=== PATIENT | female | born 1985 | race Caucasian/White ===

== ENCOUNTER 2016-11-13 09:38 | Inpatient (IN) | payer MEDICAID ==
[~2016-11-13] VITALS: Ht 162.6 cm; Wt 101.2 kg
[~2016-11-13 09:38] MED LIST: Carboprost 250 mCg/mL Inj IM PRN; Docusate Sodium PO; FERR-74 PO; HYDR-656 PO; Hemorrhage Kit, Post Partum XX ONE; Ibuprofen PO; Lactated Ringer's 1,000 ML IV SCH; Methylergonovine 0.2 mg/mL Inj IM PRN; OMEP10CA2 PO; OXYC-284 PO; Oxytocin 10 Unit/mL Inj IM PRN; PREN1TAB25 PO; Sodium Citrate-Citric Acid 15 mL Solution PO SCH; URSO300C2 PO
[2016-11-13] MEDS ORDERED: Oxytocin 10 Unit/mL Inj ONE (09:39)
[2016-11-13] MEDS ORDERED: Bupiv-Spinal 0.75%/Dex 8.25% 2 mL Inj ONE (09:39)
[2016-11-13] MEDS ORDERED: Ondansetron 2 mg/mL 2 mL Inj ONE (09:39)
[2016-11-13] MEDS ORDERED: fentaNYL-PF 50 mCg/mL 2 mL Inj ONE (09:39)
[2016-11-13] MEDS ORDERED: Morphine PF 1 mg/mL 10 mL Inj ONE (09:39)
[2016-11-13 10:39] LABS: Mean Corpuscular Hemoglobin 25.6 pg (27.0-35.0); Mean Corpuscular Volume 79.2 fL (81-100)
[2016-11-13] MEDS ORDERED: CeFAZolin Inj 2 GM in Dextrose 5% 50 ML IV SCH (10:48)
[2016-11-13] MEDS ORDERED: RANI150T11 PO (11:33)
[2016-11-13 13:51] LABS: INR 0.95 ratio
--- NOTE | 2016-11-13 14:12 | PCM.HPANE ---
Patient Data Surgeon Admitting Provider:Roland Bhatt MD Attending Provider:Roland Bhatt MD Primary Care Physician:Gildardo Gil MD Other Provider:Sharri Faustin Anesthesia Reason for Visit Repeat REPEAT Ht/WT & BMI Body Mass Index Allergies Coded Allergies: No Known Allergies (Unverified Allergy, Unknown, 11/13/16) latex (Unverified Allergy, Unknown, 11/13/16) Diabetes History Hx Diabetes?: No Medications Reported Medications Ranitidine (Zantac)150 Mg [id number] Mg PO DAILY 11/13/16 Ursodiol 300 Mg [id number] Mg PO TID 07/08/14 Vit#96/Ferrous Fum/FA ( Tablet)1 Each Tablet1 Each PO DAILY 07/08/14 Discontinued Reported Medications hydrOXYzine Hcl (HydrOXYzine Hcl)25 Mg Ymyfqj14 Mg PO HS PRN For Itching 07/08/14 Omeprazole (Prilosec)10 Mg Capsule.dr PO DAILY 30 Days Ref 0 07/08/14 Discontinued Scripts Oxycodone HCl/Acetaminophen 5-325 (Percocet 5-325)1 Each Tablet1-2 Each PO Q4 PRN For Pain #30 TABLET Ref 0 Prov:Roland Bhatt MD 07/10/14 [Ibuprofen] (Motrin)800 MG TABLET No Conflict [id number] Mg PO Q6H PRN For Pain # 30 TABLET Ref 1 Prov:Roland Bhatt MD 07/10/14 Ferrous Sulfate (Feosol)325 Mg [id number] Mg PO DAILY #30 TABLET Ref 2 Prov:Roland Bhatt MD 07/10/14 [Docusate Sodium] (Colace)100 MG CAPSULE No Conflict Cnzyc620 Mg PO BID #60 CAPSULE Ref 2 Prov:Roland Bhatt MD 07/10/14 History History of ENT Problems?: No Hx of Heart Problems?: No Hx of Respiratory Problem?: No Hx Neurologic Problems?: No Hx of GI Problems?: Yes Gastrointestinal History: Positive for:: Heartburn Hx of Problems?: No HX of Peritoneal Dialysis: No Female Hx: Positive for:: Currently Hx Musculoskeletal Problems?: No Hx of Psycho/Social Problems?: No Hx Surgeries?: Yes Hx Any Other Health Problems?: No Hx Diabetes: No Hx Alcohol Use: NoHx Substance Use: No Smoking Status: Never Smoker Have You Smoked inLast 12 mo: No Stop/Bang Risk Assessment Category Category 1A: Patient has history of documented sleep apnea, and HAS NOT received any narcotic, sedative or anesthesia administration during this stay. Category 1B: Patient has history of documented sleep apnea, and HAS received any narcotic , sedative or anesthesia administration during this stay Category 2: Patient has SUSPECTED Obstructive Sleep Apnea, and HAS received any narcotic , sedative or anesthesia administration during this stay. Category 3: Patient has SUSPECTED Obstructive Sleep Apnea and HAS NOT received narcotic, sedative or anesthesia administration during this stay. Category 4: Outpatient in Procedural Areas with known sleep apnea or who screen positive for High Risk via the STOP/BANG questionnaire. Exam Exam General Appearance: Alert, Oriented X3, Cooperative, No Acute Distress HEENT/AIRWAY: MP 2 Lungs: Clear to Auscultation Heart: Exam Unremarkable Meds/Labs/Diagnostics Admission Meds Current Medications Lactated Ringer's (Lr) 1,000 ml @ 125 mls/hr Q8H IV Last administered on t 11:21; Start 11/13/16 at 08:59; Stop 11/13/16 at 16:58 Labs Test 11/13/16 10:10 11/13/16 13:13 White Blood Count 9.5th/mm3 (3.8-10.1) Red Blood Count 4.03mil/mm3 (3.90-5.20) Hemoglobin 10.3g/dL (12.0-15.6) Hematocrit 31.9% (35.0-46.0) Mean Corpuscular Volume 79.2fL (81-100) Mean Corpuscular Hemoglobin 25.6pg (27.0-35.0) Mean Corpuscular Hemoglobin Concent 32.3% (32.0-37.0) Red Cell Distribution Width 13.4% (12.3-15.4) Platelet Count 248bil/L (150-400) Creatinine 0.51mg/dL (0.57-1.00) Aspartate Amino Transf (AST/SGOT) 16U/L (0-50) Alanine Aminotransferase (ALT/SGPT) 8U/L (0-32) Plan Impression Patient chart reviewed, patient interviewed and anesthestic plan with risks, benefits, and alternatives discussed, and informed consent obtained. ASA Physical Status: ASA2 Mod Systemic Disease Anesthetic Plan: SAB Bene/Risks/Altern/Consents: Yes HP Complete Prior to Induction: Yes Tanner Junior MD Nov 13, 2016 13:50
[2016-11-13] MEDS ORDERED: Lactated Ringer's 1,000 ML IV PRN (14:32)
[2016-11-13] MEDS ORDERED: Morphine PF 1 mg/mL 10 mL Inj INTRATHEC ONE (14:35)
[2016-11-13] MEDS ORDERED: Ondansetron 2 mg/mL 2 mL Inj IVPUSH PRN (14:35)
[2016-11-13] MEDS ORDERED: Atropine 0.4 mg/mL Inj IV PRN (14:35)
[2016-11-13] MEDS ORDERED: EPHEDrine Sulfate 50 mg/mL Inj IVPUSH PRN (14:35)
[2016-11-13] MEDS ORDERED: MetoCLOpramide 5 mg/mL 2 mL Inj IVPUSH PRN (14:35)
[2016-11-13] MEDS ORDERED: Dexamethasone 4 mg/mL Inj IVPUSH PRN (14:35)
[2016-11-13] MEDS ORDERED: fentaNYL-PF 50 mCg/mL 2 mL Inj IVPUSH PRN (14:35)
[2016-11-13] MEDS ORDERED: HYDROmorphone 1 mg/mL Inj IVPUSH PRN (14:35)
--- NOTE | 2016-11-13 15:41 | PCM.ANEP1 ---
Post Anesthesia Phase 1 PACU Phase 1 Assessment Anesthetic Administered: SAB Level of Alertness: Awake, talking AYALA's with Equal Strength: No (spinal) Pain: No Nausea or Vomiting: No Oxygen Delivery: Room Air Lungs: Clear to Auscultation Tanner Junior MD Nov 13, 2016 15:41
--- NOTE | 2016-11-13 15:42 | PCM.ANEP2 ---
Post Anesthesia Evaluation ASA/CMS Post Anesthesia VS in Patient's Normal Range?: Yes Resp Stable; Airway Patent?: Yes CV Function & Hydration Stable: Yes Mental Status Recovered?: Yes Pain control Satisfactory?: Yes N/V Control Satisfactory?: Yes Tanner Junior MD Nov 13, 2016 15:41
[2016-11-13] MEDS ORDERED: oxyCODONE-Acetamin 5-325 mg Tablet PO PRN (15:50)
[2016-11-13] MEDS ORDERED: Carboprost 250 mCg/mL Inj IM PRN (15:50)
[2016-11-13] MEDS ORDERED: Oxytocin 10 Unit/mL Inj IM PRN (15:50)
[2016-11-13] MEDS ORDERED: Oxytocin 30 Units/500 mL LR 30 UNITS in IV Premix 1 EACH IV PRN (15:50)
[2016-11-13] MEDS ORDERED: Hemorrhage Kit, Post Partum XX ONE (15:50)
[2016-11-13] MEDS ORDERED: Acetaminophen IV 1,000 MG in IV Premix 1 EACH IV PRN (15:50)
[2016-11-13] MEDS ORDERED: LANOlin HPA 7 Gm Ointment TOPICAL PRN (15:50)
[2016-11-13] MEDS ORDERED: Methylergonovine 0.2 mg/mL Inj IM PRN (15:50)
[2016-11-13] MEDS ORDERED: Sodium Chloride LOK Flush 10 mL Syringe IVFLUSH PRN (15:50)
[2016-11-13] MEDS ORDERED: HYDROcodone-APAP 5-325 mg Tablet PO PRN (15:50)
[2016-11-13] MEDS ORDERED: hydrOXYzine Pamoate 25 mg Capsule PO PRN (15:50)
[2016-11-13] MEDS: Lactated Ringer's 1,000 ML IV SCH ×2 (16:15→20:34)
[2016-11-14] MEDS: Lactated Ringer's 1,000 ML IV SCH ×2 (01:41→04:55)
[2016-11-14] MEDS ORDERED: CeFAZolin Inj 2 GM in IV Premix 1 EACH IV ONE (06:00)
[2016-11-14 08:51] LABS: Mean Corpuscular Hemoglobin 25.4 pg (27.0-35.0); Mean Corpuscular Volume 79.8 fL (81-100)
--- NOTE | 2016-11-14 11:36 | PCM.DC.OB ---
Obstetrical Discharge Summary Date of Service Nov 14, 2016 Date of hospital admission Nov 13, 2016 at 09:38 Date of Discharge: Nov 14, 2016 Providers Admitting Physician: Roland Garcia MD Primary Care Physician: Gildardo Gil MD Attending Physician: Roland Garcia MD Problems: (1) Status post repeat low transverse section Onset Date: 07/08/2014 Status: Acute ICD Code: Z98.89 (2) Cholestasis of Qualifiers: Trimester: third trimester Qualified Code: O26.613 - Liver and biliary tract disorders in , third trimester Onset Date: 07/07/2014 Status: Acute ICD Code: K83.1 Consultations None Invasive procedures Repeat LTCS Date of Procedure: Nov 13, 2016 Hospital Course: Patient had an uncomplicated repeat LTCS for cholestasis at 36 weeks and 1 day. Recovered well. Wanted to go see her baby in [place] (transported). Vit#96/Ferrous Fum/FA ( Tablet) 1 Each Tablet 1 EACH PO DAILY ( Reported) Last Taken: Unknown Dose on 11/12/16 Ranitidine (Zantac) 150 Mg Tablet 150 MG PO DAILY (Reported) Last Taken: Unknown Dose on 11/12/16 Ursodiol (Ursodiol) 300 Mg Capsule 300 MG PO TID (Reported) Last Taken: Unknown Dose on 11/12/16 Discontinued Medications ([Docusate Sodium]) 100 MG CAPSULE 100 MG PO BID Prescribed by: ROLAND GARCIA MD ([Ibuprofen]) 800 MG TABLET 800 MG PO Q6H PRN PRN For Pain Prescribed by: ROLAND GARCIA MD Ferrous Sulfate (Feosol) 325 Mg Tablet 325 MG PO DAILY Prescribed by: ROLAND GARCIA MD Omeprazole (Prilosec) 10 Mg Capsule.dr 0 PO DAILY (Reported) Oxycodone HCl/Acetaminophen 5-325 (Percocet 5-325) 1 Each Tablet 1-2 EACH PO Q4 PRN PRN For Pain Prescribed by: ROLAND GARCIA MD hydrOXYzine Hcl (HydrOXYzine Hcl) 25 Mg Tablet 25 MG PO HS PRN PRN For Itching ( Reported) Follow-up plan See me at 2 weeks if needed for a wound check. See Dr. Gil at 8 weeks. Discharge Diet: No restrictions Discharge Activity-General: Pelvic Rest for 6 weeks, Balance rest and activity , Activity as energy allows, No lifting >15 pounds for 2 weeks copies to: Gildardo Gil MD, David B MD Nov 14, 2016 11:36
--- NOTE | 2016-11-14 11:39 | PCM.DIOB ---
Obstetrical Disch Instruction Date of Service: Nov 14, 2016 Dates of Hospitalization Date of Hospital Admission Nov 13, 2016 at 09:38 Providers Admitting Physician: Roland Bhatt MD Primary Care Physician: Gildardo Gil MD Attending Physician: Roland Bhatt MD Discharge Diagnosis Problems: (1) Status post repeat low transverse section Onset Date: 07/08/2014 Status: Acute ICD Code: Z98.89 (2) Cholestasis of Qualifiers: Trimester: third trimester Qualified Code: O26.613 - Liver and biliary tract disorders in , third trimester Onset Date: 07/07/2014 Status: Acute ICD Code: K83.1 Diet Discharge Diet: No restrictions Activity Discharge Activity-General: Pelvic Rest for 6 weeks, Activity as pain allows, Activity as energy allows, No lifting >15 pounds for 2 weeks Dressing and Incisional Care Dressing Care: Allow Steri Stripes to fall off Hygiene: May shower, DO NOT soak incision under water Additional Instructions Discharge Instructions See me if needed at two weeks post . See Dr. Gil at 8 weeks post for routine check. Follow Up Plan Follow Up Plan Nurse visit with Dr. Bhatt's office on Saturday for staple removal. Follow-up Provider (F9): Gildardo Gil MD Follow-up appointment: Weeks (8) Call your provider for: Fever or Chills, Heavy vaginal bleeding, Excessive constipation, Red painful breasts Roland Bhatt MD Nov 14, 2016 11:39
[2016-11-14] MEDS ORDERED: DOCU-41 PO (11:44)
[2016-11-14] MEDS ORDERED: IBUP800T28 PO (11:44)
[2016-11-14] MEDS ORDERED: OXYC1TAB24 PO (11:44)
[2016-11-14 12:55] VITALS: BP 114/68; PULSE 75; RESP 18
--- NOTE | 2016-11-14 21:06 | OP ---
[address] [address] OPERATIVE REPORT PATIENT: MANA ALCANTARA : 1985 MR#: [id number] ADMIT: 11/13/2016 JOB ID: [id number] DATE OF SURGERY: 11/13/2016 PREOPERATIVE DIAGNOSIS(ES): 1. 9, para 3 female at 36 weeks and 1 day estimated gestational age. 2. Previous section x3. 3. Worsening cholestasis of in the third trimester. 4. History of hemorrhage associated with prior cholestasis of with previous pregnancies. POSTOPERATIVE DIAGNOSIS(ES): 1. 9, para 4 female at 36 weeks and 1 day estimated gestational age. 2. Previous section x3. 3. Worsening cholestasis of in the third trimester. 4. History of hemorrhage associated with prior cholestasis of with previous pregnancies. PROCEDURE: Repeat low transverse section via Pfannenstiel incision. SURGEON: Roland Bhatt MD. LOOM FIXER APPRENTICE: Gildardo Gil MD ANESTHESIA: Spinal. INDICATIONS: The patient is a grand multip with three prior sections who presents with worsening cholestasis of and worsening bile acid labs as well as increasing symptoms. Due to this worsening, her was performed before 39 weeks. This is indicated given her diagnosis of cholestasis. COMPLICATIONS: None. FINDINGS: 1. Initially, vigorous infant female that weighed 7 pound 11 ounces. 2. Normal uterus, tubes, and ovaries. 3. Uscymsnn-os-piporh adhesions to the uterus. ESTIMATED BLOOD LOSS: 800 cc. INTRAVENOUS FLUIDS IN: 2 L of lactated Ringer's. URINE OUT: 50 cc of clear urine at the end of the procedure with the patient voiding just prior to the procedure. PATHOLOGY: None. PROCEDURE IN DETAIL: The patient was taken back to the OR where a spinal anesthesia was performed. A procedural time-out was done. Of note is that 2 g of Ancef IV were given prior to the procedure. The patient's prior scar was noted and use for entry with this surgery. The 15 blade was used to make the incision down to the fascia. The Bovie was used to widen this incision and also open up the fascia centrally. The fascia was then opened up laterally in each direction using the Romano scissors. Once this was performed, Johnathon clamps were applied to the fascia both superiorly and inferiorly and the underlying muscle was dissected away from the fascia. A hemostat was used superiorly and centrally on the muscle layer to enter. Final entry into the abdomen and pelvis was done with my fingers. Care was made to avoid the underlying bladder as the muscle layer was dissected down using the Bovie and my fingers. Due to adhesions to the left onto the uterus and inferiorly towards the bladder, additional room for surgery had to be made superiorly. At 1st, I considered cutting laterally into the muscle but decided that we probably would have enough room to at least deliver the baby without doing this even though we might have to repair the uterus while leaving it interiorly. The reflection of the bladder on the uterus was relatively high as well. I went above this with my incision but did not enter the uterus with the knife. Instead, I used my fingers to enter the uterus and the bulging amniotic sac was noted. There was no room to the left where the adhesions were stuck onto the uterus, and so I used the bandage scissors to create more room to the patient's right on her uterus. This was successful and created enough room to deliver the baby without entering the uterine vessels. The amniotic sac was ruptured and clear fluid was noted. The 's head delivered without very much difficulty. The body followed in similar fashion. Right away, the infant was noted to be vigorous and with good tone and crying. For this reason, 30 seconds of delayed clamping was performed. The cord was then clamped and cut and the was handed off to the waiting applications systems engineer. Cord blood was sent for analysis. The placenta was delivered manually and the uterus was able to be exteriorized. Once this had been done, it was cleared of all membranes. The bladder blade was replaced into the pelvis and the uterine repair was started using 1-0 chromic in a running, locked fashion. This was done in a single layer and very little bleeding was noted otherwise. For this reason, no additional layers were added. The patient had no intention of getting again though she did not desire tubal. At this point, bleeding was noted higher up on the uterus where an adhesion had broken free and created peritoneal bleeding. This was cauterized and watched extensively. I also noted bleeding higher up on the muscle at this point. The muscular bleeding was due to entrapped omentum that had been damaged with stretching the muscles open. Of note is that there was no bowel included but this omentum. I did place a stitch onto this muscle in a [id number] fashion to stop the bleeding. This was successful and I watched it extensively as well. After the stitch was placed, I relooked at the uterus itself and found no additional bleeding. The pelvis was irrigated and then the uterus was replaced back into the pelvis. Following this, the muscle was repaired in the usual fashion using 2-0 chromic suture in a running fashion. Additional looks at the muscle for bleeding were performed and no additional bleeding was found. I then closed the fascia using 0 Vicryl in a running fashion. The subcutaneous tissue was irrigated, and the skin was closed using lucy. A standard dressing was applied. The patient was in excellent condition following the procedure and counts were correct x3. There were no other complications. She was taken back to her room where postop care was provided.
== END 2016-11-14 14:00 | disposition home or self-care (01) | DRG 540 ==
LOC: FBC 09:38 → EDSTATUS 11-14 11:45
PROVIDERS: ADMIT Family Medicine; ATTEND Family Medicine
PROC: 10D00Z1 Extraction of Products of Conception, Low, Open Approach (ICD-10-PCS; principal; 2016-11-13 11:45)
DX: O26.62 Liver and biliary tract disorders in childbirth (principal); K83.1 Obstruction of bile duct; Z3A.36 36 weeks gestation of pregnancy; Z37.0 Single live birth; O34.211 Maternal care for low transverse scar from previous cesarean delivery; O99.89 Other specified diseases and conditions complicating pregnancy, childbirth and the puerperium; N73.6 Female pelvic peritoneal adhesions (postinfective)